=== PATIENT | male | born 1990 | race Caucasian/White ===

== ENCOUNTER 2018-09-22 05:07 | Emergency (ER) | payer OTHER ==
[~2018-09-22] VITALS: Ht 170.2 cm; Wt 72.6 kg
[2018-09-22 05:08] VITALS: BP 106/55
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
--- NOTE | 2018-09-22 05:29 | NUR ---
PT DISCHARGED TO [facility]. EDUCATED PT REGARDING DISCHARGE DIAGNOSIS. PT VERBALIZED UNDERSTANDING TEACHING. PT VSS. ALL QUESTIONS ANSWERED.
== END 2018-09-22 05:29 | disposition home or self-care (01) ==
LOC: MED 05:07
DX: Z04.1 Encounter for examination and observation following transport accident (principal); Z02.89 Encounter for other administrative examinations; V89.2XXA Person injured in unspecified motor-vehicle accident, traffic, initial encounter; Y93.89 Activity, other specified; Y92.410 Unspecified street and highway as the place of occurrence of the external cause; Y99.8 Other external cause status
CPT/HCPCS: 99283